=== PATIENT | female | born 1965 | race Caucasian/White ===

== ENCOUNTER 2017-07-12 00:40 | Emergency (ER) | payer SELFPAY ==
[~2017-07-12] VITALS: Ht 167.6 cm; Wt 81.6 kg
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
--- NOTE | 2017-07-12 01:19 | NUR ---
INTERMETTENTLY SLEEPS AND WAKES UP. NO DISTRESS NOTED. RESP EVEN AND UNLABORED. ON MONITOR.
[2017-07-12 02:00] VITALS: BP 124/77
--- NOTE | 2017-07-12 02:08 | NUR ---
PT DISCONNECTED HERSELF FROM THE MONITOR AND STARTED WALKING OUT IF ER. STATES "AM GONNA CALL A TAXI AND GO HOME". AMBULATED WITH STEADY GAIT. DENIES ANY SX'S. NOTIFIED.
== END 2017-07-12 02:09 | disposition left against medical advice (07) ==
LOC: ER 00:46
DX: R41.0 Disorientation, unspecified (principal); F10.129 Alcohol abuse with intoxication, unspecified
CPT/HCPCS: A4606; Z7610

== ENCOUNTER 2018-07-10 01:53 | Emergency (ER) | payer SELFPAY ==
[~2018-07-10] VITALS: Ht 172.7 cm; Wt 77.1 kg
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
[2018-07-10] MEDS ORDERED: AMOX/CLAVULANATE 875 MG TABLET PO ONE (02:30)
[2018-07-10] MEDS ORDERED: TDAP [DIPH/PERTUSSIS/TET] 0.5 ML VIAL IM ONE ×2 (02:30→02:51)
[2018-07-10 02:46] LABS: EOSINOPHILS % (AUTO) 5.3 % (0.0-6.0); HEMATOCRIT 42 % (33-45); LYMPHOCYTES # (AUTO) 1.1 /CMM (0.8-4.8); LYMPHOCYTES % (AUTO) 28.3 % (20.0-44.0); MEAN CORPUSCULAR HGB CONC 34 g/dl (31.0-36.0); MEAN CORPUSCULAR VOLUME 95 fL (82-100); MONOCYTES # (AUTO) 0.3 /CMM (0.1-1.30); MONOCYTES % (AUTO) 6.9 % (2.0-12.0); NEUTROPHILS # (AUTO) 2.2 /CMM (1.8-8.9); NEUTROPHILS % (AUTO) 58.5 % (43.0-81.0); PLATELET COUNT (AUTO) 260 /CMM (150-450); RED BLOOD CELL COUNT(AUTO) 4.37 MIL/uL (4.0-5.2); WHITE BLOOD COUNT (AUTO) 3.8 K/uL (4.3-11.0)
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
[2018-07-10 02:49] LABS: APPEARANCE,URINE CLEAR (CLEAR); BILIRUBIN,URINE 1+ (NEGATIVE); BLOOD, URINE 1+ Ery/uL (NEGATIVE); COLOR,URINE YELLOW (YELLOW); KETONES,URINE TRACE (NEGATIVE); LEUKOCYTE ESTERASE ,URINE NEGATIVE (NEGATIVE); NITRITE, URINE NEGATIVE (NEGATIVE); PH,URINE 6.5 (5.0-8.0); PROTEIN,URINE 1+ mg/dl (NEGATIVE); UGLUCOSE NEGATIVE (NEGATIVE)
[2018-07-10] MEDS ORDERED: AMOX/CLAVULANATE 875 MG TABLET ONE (02:51)
[2018-07-10 03:04] LABS: ALANINE AMINOTRANSFERASE 30 U/L (12-78); ALBUMIN 3.4 g/dL (3.4-5.0); ALCOHOL, BLOOD 300 mg/dL (0-0); ALKALINE PHOSPHATASE 81 U/L (46-116); ASPARTATE AMINOTRANSFERASE 33 U/L (15-37); BILIRUBIN,DIRECT 0.1 mg/dL (0.0-0.2); BILIRUBIN,TOTAL 0.2 mg/dL (0.2-1.0); CARBON DIOXIDE 27 mmol/L (21-32); CHLORIDE 105 mmol/L (98-107); CREATININE 0.8 mg/dL (0.6-1.3); GLUCOSE 102 mg/dL (74-106); POTASSIUM 3.3 mmol/L (3.5-5.1); SODIUM SERUM 144 mmol/L (136-145); TOTAL PROTEIN, SERUM 8.2 g/dL (6.4-8.2); UREA NITROGEN, BLOOD 16 mg/dL (7-18)
--- NOTE | 2018-07-10 03:05 | NUR ---
[facility] OFFICERS AT BEDSIDE TALKING TO PT.
[2018-07-10 03:06] LABS: ACETAMINOPHEN < 3 ug/ml (10-30)
[2018-07-10 03:13] LABS: BACTERIA,URINE None seen /HPF (None Seen); MUCUS,URINE Moderate /LPF (None Seen); SQUAMOUS EPITHELIAL CELL,UR Few /HPF (None Seen); WBC,URINE 0-2 /HPF (0-3)
--- NOTE | 2018-07-10 03:50 | NUR ---
PT TAKEN TO CT.
--- NOTE | 2018-07-10 04:03 | NUR ---
PT BACK FROM CT AND PUT ON THE MONITOR. NAD NOTED.
--- NOTE | 2018-07-10 04:30 | NUR ---
CALLING [facility] TRANSFER LINE.
--- NOTE | 2018-07-10 04:36 | NUR ---
LEFT A VOICE MESSAGE FOR [facility] TRANSFER LINE RE: HIGHER LEVEL OF CARE TRANSFER.
--- NOTE | 2018-07-10 04:36 | NUR ---
CALLING [facility] RE: HIGHER LEVEL OF CARE TRANSFER.
--- NOTE | 2018-07-10 04:38 | NUR ---
[facility] IS UNABLE TO ASSIST WITH TRANSFERING PT FOR HIGHER LEVEL OF CARE.
--- NOTE | 2018-07-10 05:12 | NUR ---
CALLING [facility] RE: HIGHER LEVEL OF CARE TRANSBRUNO
--- NOTE | 2018-07-10 05:28 | NUR ---
CALLED [facility] AND SPOKE TO [facility]. STATES "WE'RE ONLY ACCEPTING STEMI/CVA. CALL BACK IN AN HOUR". NOTIFIED.
--- NOTE | 2018-07-10 05:30 | NUR ---
CALLED [facility] AND SPOKE TO CHARGE NURSE CEM AND STATES "WE DONT HAVE OPHTHMALOGIST/OCUL PLASTY BRAIDING OPERATOR"
--- NOTE | 2018-07-10 06:07 | NUR ---
BRUNO HURTADO AT BEDSIDE TO RE-EVAL PT.
--- NOTE | 2018-07-10 06:10 | NUR ---
CALLED [facility] AND SPOKE TO [facility] NAIF PUENTE. "WE HAVE OPHTH FOR ONLY IN PATIENTS"
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
--- NOTE | 2018-07-10 07:49 | NUR ---
Raul from [facility] transfer center called with Accepting information. Accepted to : [facility] ER Accepting MD: Preston Report to: [facility] Transfer Center [phone]
--- NOTE | 2018-07-10 07:51 | NUR ---
Called [facility] for transport, ETA 1000 Trip #[id number]
--- NOTE | 2018-07-10 07:59 | NUR ---
Patient Refusing EKG
[2018-07-10] MEDS ORDERED: POTASSIUM CHLORIDE 20 MEQ TAB.PRT.SR PO ONE ×2 (08:00→08:14)
[2018-07-10] MEDS ORDERED: IV NS 0.9% 1,000 ML BAG IV ONE (08:00)
[2018-07-10 09:24] VITALS: BP 134/72
--- NOTE | 2018-07-10 09:41 | NUR ---
REPORT GIVEN TO CHARGE NURSE NUVIA AT [facility] ED. AWAITING FOR TRANSFER.
--- NOTE | 2018-07-10 11:16 | NUR ---
TRANSFERED TO [facility]. STABLE CONDITION.
== END 2018-07-10 11:20 | disposition short-term general hospital (02) ==
LOC: ER 01:54
DX: S01.111A Laceration without foreign body of right eyelid and periocular area, initial encounter (principal); S01.81XA Laceration without foreign body of other part of head, initial encounter; F10.129 Alcohol abuse with intoxication, unspecified; R07.9 Chest pain, unspecified; R41.82 Altered mental status, unspecified; I10 Essential (primary) hypertension; J45.909 Unspecified asthma, uncomplicated; Z85.72 Personal history of non-Hodgkin lymphomas; Z98.890 Other specified postprocedural states; Y04.0XXA Assault by unarmed brawl or fight, initial encounter; Y93.89 Activity, other specified; Y92.89 Other specified places as the place of occurrence of the external cause; Y99.8 Other external cause status; Y90.8 Blood alcohol level of 240 mg/100 ml or more
CPT/HCPCS: 36415; 70450-TC; 71045-TC; 72125-TC; 80048-TC; 80076-TC; 80305; 81000-TC; 84484-TC; 84703-TC; 85025-TC; 85730-TC; 90715; A6402; A6403; G0480; J7030

== ENCOUNTER 2021-05-03 09:54 | Emergency (ER) | payer SELFPAY ==
--- NOTE | 2021-05-03 10:10 | NUR ---
called to triage, no answer
--- NOTE | 2021-05-03 10:25 | NUR ---
called to triage,no answer
--- NOTE | 2021-05-03 10:36 | NUR ---
called to triage, no answer
== END 2021-05-03 11:08 | disposition left against medical advice (07) ==
LOC: ER 10:54
DX: Z53.21 Procedure and treatment not carried out due to patient leaving prior to being seen by health care provider (principal)